=== PATIENT | female | born 1990 | race Caucasian/White ===

== ENCOUNTER 2023-12-30 06:15 | Day surgery (SDC) | payer BC ==
[2023-12-30] MEDS ORDERED: hydrALAZINE 20 MG/ML VIAL SLOW IVP PRN (07:11)
== END 2023-12-30 08:45 | disposition home or self-care (01) ==
LOC: CSHLD/OP 06:15
PROVIDERS: ATTEND Obstetrics & Gynecology
DX: O36.8120 Decreased fetal movements, second trimester, not applicable or unspecified (principal); O32.1XX0 Maternal care for breech presentation, not applicable or unspecified; Z3A.23 23 weeks gestation of pregnancy; Z79.82 Long term (current) use of aspirin; Z79.899 Other long term (current) drug therapy
CPT/HCPCS: 76815; 99281

== ENCOUNTER 2024-03-31 17:47 | Inpatient (IN) | payer BC ==
[~2024-03-31 17:47] MED LIST: Lidocaine 2% 10 ML INJ ONE; Terbutaline Sulfate 1 MG/ML VIAL ONE
[2024-03-31] MEDS ORDERED: fentaNYL 50 mcg/mL 1 mL Vial SLOW IVP PRN (18:29)
[2024-03-31] MEDS ORDERED: Methylergonovine 0.2 MG/ML VIAL IM PRN (18:29)
[2024-03-31] MEDS ORDERED: Acetaminophen 500 MG TAB PO PRN (18:29)
[2024-03-31] MEDS ORDERED: hydrALAZINE 20 MG/ML VIAL SLOW IVP PRN (18:29)
[2024-03-31] MEDS ORDERED: Tranexamic Acid 1,000 MG/10 ML VIAL IVP PRN (18:29)
[2024-03-31] MEDS ORDERED: Misoprostol 200 MCG TAB PR PRN (18:29)
[2024-03-31] MEDS ORDERED: Ibuprofen 800 MG TAB PO PRN (18:29)
[2024-03-31] MEDS ORDERED: Lactated Ringer's 1,000 ML IV SCH (18:29)
[2024-03-31] MEDS ORDERED: Zolpidem Tartrate 5 MG TAB PO PRN (18:29)
[2024-03-31] MEDS ORDERED: HYDROcodone/Acetaminophen 5/325 mg Tablet PO PRN ×2 (18:29)
[2024-03-31] MEDS ORDERED: Diphenoxylate HCl/Atropine Tablet PO PRN ×2 (18:29)
[2024-03-31] MEDS ORDERED: Promethazine HCl 25 MG/ML VIAL IM PRN (18:29)
[2024-03-31] MEDS ORDERED: Ondansetron PF 4 MG/2 ML Vial IVP PRN (18:29)
[2024-03-31] MEDS ORDERED: Lidocaine 1% (PF) 30 ML VIAL SC PRN (18:29)
[2024-03-31] MEDS ORDERED: Carboprost 250 MCG/ML AMP IM PRN (18:29)
[2024-03-31] MEDS: Misoprostol 100 MCG TAB VAG SCH (19:25)
[2024-03-31 19:26] LABS: Hematocrit 32.6 % (34.9-44.5); Hemoglobin 11.5 g/dL (12.0-15.5); Mean Corpuscular HGB CONC 35.3 g/dL (32.0-36.0); Mean Corpuscular Hemoglobin 32.8 pg (27.0-33.0); Mean Corpuscular Volume 92.9 fL (81.6-98.3); Mean Platelet Volume 10.9 fL (7.4-10.4); Platelet Count 229 10x3/uL (150-450); RBC Distribution Width 12.6 % (11.5-14.5); Red Blood Cell (RBC) Count 3.51 10x6/uL (3.90-5.03); White Blood Cell (WBC) Count 10.1 10x3/uL (3.5-10.5)
[2024-03-31 19:58] VITALS: BMI 24.3
[2024-03-31 21:21] LABS: Syphilis Antibody Nonreactive (Nonreactive); Syphilis Antibody Index 0.09 S/CO (<1.00 Non-Reactive)
[2024-03-31 21:23] LABS: HBsAg Index 0.16 S/CO (0-0.99); Hep B Surf Ag - L&D Non-Reactive S/CO (NonReactive)
[2024-04-01] MEDS: Oxytocin 30 units/NS 500 ML 500 ML IV SCH ×2 (04:40→15:50)
[2024-04-01] MEDS: fentaNYL/Ropivacaine Epidural 100 ML ONE (08:48)
[2024-04-01] MEDS ORDERED: Preparation H Ointment 28 GM TUBE PR PRN (16:16)
[2024-04-01] MEDS ORDERED: Bisacodyl 10 MG SUPP PR PRN (16:16)
[2024-04-01] MEDS ORDERED: diphenhydrAMINE 25 MG CAP PO PRN (16:16)
[2024-04-01] MEDS ORDERED: hydrALAZINE 20 MG/ML VIAL SLOW IVP PRN (16:16)
[2024-04-01] MEDS ORDERED: Lanolin Ointment 7 GM TUBE TOP PRN (16:16)
[2024-04-01] MEDS ORDERED: Milk Of Magnesia 30 ML UDCUP PO PRN (16:16)
[2024-04-01] MEDS ORDERED: Benzocaine-Menthol 82.5 ML CAN TOP PRN (16:16)
[2024-04-01] MEDS ORDERED: traMADol HCl 50 MG TAB PO PRN (16:16)
[2024-04-01] MEDS: Dexmedetomidine 200 MCG/2 ML VIAL ONE (17:58)
[2024-04-01] MEDS: Boostrix 0.5 ML (Tdap) VIAL (>/=7 yrs of age) IM ONE (17:58)
[2024-04-01] MEDS: Ferrous Sulfate 325 MG TAB PO SCH (17:58)
[2024-04-01] MEDS: Ibuprofen 800 MG TAB PO SCH ×2 (18:27→21:56)
[2024-04-01] MEDS: Docusate 100 MG CAP PO SCH (21:55)
[2024-04-02] MEDS: Prenatal Vitamin 1 TAB PO SCH (08:36)
[2024-04-02] MEDS: Acetaminophen 500 MG TAB PO PRN (08:39)
[2024-04-03 08:06] VITALS: BP 117/66; TEMP 97.9
== END 2024-04-03 12:30 | disposition home or self-care (01) | DRG 807 ==
LOC: CSHLD 17:47 → CSHPP 04-01 16:52
PROVIDERS: ADMIT Obstetrics & Gynecology; ATTEND Obstetrics & Gynecology
PROC: 10E0XZZ Delivery of Products of Conception, External Approach (ICD-10-PCS; principal; 2024-04-01)
PROC: 0UQMXZZ Repair Vulva, External Approach (ICD-10-PCS; 2024-04-01)
DX: O26.893 Other specified pregnancy related conditions, third trimester (principal); Z37.0 Single live birth; Z67.41 Type O blood, Rh negative; Z3A.37 37 weeks gestation of pregnancy; Z79.899 Other long term (current) drug therapy; Z98.890 Other specified postprocedural states; O71.82 Other specified trauma to perineum and vulva
CPT/HCPCS: 36415; 85027; 86780; 86850; 86870; 86900; 86901; 87340; J2590; J3105